=== PATIENT | female | born 1975 | race Caucasian/White ===

== ENCOUNTER 2016-08-26 15:22 | Emergency (ER) | payer BC ==
[2016-08-26 15:39] VITALS: BP 139/69
--- NOTE | 2016-08-26 16:15 | UC ---
Lower Extremity/Ankle HPI - HPI Summary HPI Summary: Twisted ankle while stepping off tall step, into hole 5 days ago. Spent 2 days on crutches, now has put on her own walking boot and bearing weight but still has lots of medial pain. - History of Current Complaint Chief Complaint: UCLowerExtremity Stated Complaint: ANKLE INJURY Time Seen by Provider: 08/26/16 15:58 Hx Obtained From: Patient Hx Last Menstrual Period: 08/02/16 ?: No Onset/Duration: Sudden Onset Severity Initially: Severe Severity Currently: Moderate Aggravating Factor(s): Standing, Ambulation Alleviating Factor(s): Rest Able to Bear Weight: Yes - Allergies/Home Medications Allergies/Adverse Reactions: Allergies Allergy/AdvReac Type Severity Reaction Status Date / Time Promethazine [From Phenergan] Allergy Mild increased Verified 08/26/16 15:33 heart rate PMH/Surg Hx/FS Hx/Imm Hx Cancer History Of: Denies: Breast Cancer - Surgical History Surgical History: Yes Surgery Procedure, Year, and Place: ; bone graft, wrist fracture L, sinusitis - Family History Known Family History: Positive: Other - positive history of ankle injuries - Social History Occupation: Employed Full-time Alcohol Use: None Substance Use Type: None Smoking Status (MU): Never Smoked Tobacco Have You Smoked in the Last Year: No - Immunization History Most Recent Influenza Vaccination: none Review of Systems Constitutional: Negative Skin: Negative Eyes: Negative ENT: Negative Respiratory: Negative Cardiovascular: Negative Gastrointestinal: Negative Genitourinary: Negative Motor: Negative Neurovascular: Negative Musculoskeletal: Arthralgia, Decreased ROM Neurological: Negative Psychological: Negative All Other Systems Reviewed And Are Negative: Yes Physical Exam Triage Information Reviewed: Yes Appearance: Well-Appearing, No Pain Distress, Well-Nourished Vital Signs: Initial Vital Signs Temp 98.3 F 08/26/16 15:34 Pulse 73 08/26/16 15:34 Resp 16 08/26/16 15:34 BP 139/69 08/26/16 15:34 Pulse Ox 100 08/26/16 15:34 Vital Signs Reviewed: Yes Eye Exam: Normal Eyes: Positive: Conjunctiva Clear ENT Exam: Normal ENT: Positive: Normal ENT inspection, Hearing grossly normal, Pharynx normal, TMs normal Dental Exam: Normal Neck exam: Normal Neck: Positive: Supple, Nontender, No Lymphadenopathy Lower Extremity Course/Dx - Differential Dx/Diagnosis Provider Diagnoses: R ankle sprain. elevated blood pressure due to pain Discharge - Discharge Plan Condition: Stable Disposition: HOME Patient Education Materials: Ankle Sprain (ED) Referrals: Jose Antonio Mitchell MD [Medical Doctor] - 1 Week Additional Instructions: Wear your walking boot for weight-bearing until you see the orthopedist. You can take ibuprofen as needed for pain, and ice and elevate when it is swollen.
--- NOTE | 2016-08-26 16:38 | RAD ---
HISTORY: Right ankle trauma COMPARISONS: None VIEWS: 3, Frontal, lateral, and oblique views of the right ankle FINDINGS: BONE DENSITY: Normal. BONES: There is no displaced fracture. JOINTS: There is no arthropathy. ALIGNMENT: There is no dislocation. SOFT TISSUES: There is circumferential soft tissue swelling OTHER FINDINGS: None. IMPRESSION: SOFT TISSUE SWELLING. NO ACUTE OSSEOUS INJURY. IF SYMPTOMS PERSIST, RECOMMEND REPEAT IMAGING.
== END 2016-08-26 16:45 | disposition home or self-care (01) ==
LOC: UCEAST 15:22
DX: S93.401A Sprain of unspecified ligament of right ankle, initial encounter (principal); X50.1XXA Overexertion from prolonged static or awkward postures, initial encounter; Y93.89 Activity, other specified; Y92.9 Unspecified place or not applicable; R03.0 Elevated blood-pressure reading, without diagnosis of hypertension
CPT/HCPCS: 99211; G0463